=== PATIENT | male | born 2000 | race Two or more races ===

== ENCOUNTER 2025-05-06 10:31 | Emergency (ER) | payer MEDICAID ==
[~2025-05-06] VITALS: Ht 172.7 cm; Wt 111.1 kg
[2025-05-06] MEDS ORDERED: FLUORESCEIN SODIUM OPHTH 1 EA STRIP ONE (10:39)
[2025-05-06] MEDS ORDERED: TETRAcaine 5 ML BOTTLE ONE (10:39)
[2025-05-06 12:14] VITALS: BP 137/78; TEMP 98.6; O2SAT 98
== END 2025-05-06 12:15 | disposition home or self-care (01) ==
LOC: ER 10:55
DX: Z77.098 Contact with and (suspected) exposure to other hazardous, chiefly nonmedicinal, chemicals (principal)
CPT/HCPCS: 99284; J7030